=== PATIENT | male | born 1935 | race Caucasian/White ===

== ENCOUNTER 2017-08-17 23:32 | Emergency (ER) | payer MEDICARE ==
[~2017-08-17] VITALS: Ht 167.6 cm; Wt 73.0 kg
[2017-08-17 23:35] VITALS: BP 137/93; PULSE 89; RESP 16; TEMP 97.8; O2SAT 99
[2017-08-17] MEDS ORDERED: ASPI-516 CHEW (23:56)
[2017-08-18 00:05] VITALS: BP_SYST 127; BP_SYST 133; BP_SYST 145; BP_DIAS 68; BP_DIAS 71; RESP 13; RESP 18; RESP 19; RESP 20; O2SAT 99
--- NOTE | 2017-08-18 00:09 | PD ---
HPI Chief Complaint: GI Complaint Time Seen by Provider: 00:01 Travel History International Travel<30 days: No Contact w/Intl Traveler<30days: No Traveled to known affect area: No History of Present Illness HPI This is an 81-year-old male with no past medical history, presents today with complaints of watery stools times a few hours. Patient states over the last few hours, he's been drinking water from a water bottle and reports that he goes right out his bottom. He states that as soon as he drinks a bottle water he then has a bowel movement of water. He denies any fevers, chills. He denies any ill contacts. He states it only started a few hours ago. There is no reported nausea or vomiting. There is no reported blood in his stool. The patient also reports that during this episodes of watery stools, he got dizzy and nearly passed out. He is not dizzy now. He has no other complaints time my examination. PFSH Past Medical History Cerebrovascular Accident: Yes (TIA) Medical other: Yes (LOW BLOOD SUGAR) Ulcer: Yes Past Surgical History Abdominal Surgery: Yes (MESH, HERNIA REPAIR ) Social History Alcohol Use: No Tobacco Use: No Substance Use: No Allergies-Medications (Allergen,Severity, Reaction): Coded Allergies: No Known Allergies (Verified Allergy, Mild, 08/17/17) Reported Meds & Prescriptions Reported Meds & Active Scripts Active Lomotil (Diphenoxylate-Atropine) 2.5-0.025 Mg Tab 1 Tab PO Q6H PRN Reported Aspirin 81 Mg Chew 81 Mg CHEW DAILY Review of Systems Except as stated in HPI: all other systems reviewed are Neg General / Constitutional: No: Fever, Chills HENT: No: Headaches, Lightheadedness, Neck Pain Cardiovascular: No: Chest Pain or Discomfort, Palpitations Respiratory: No: Cough, Shortness of Breath Gastrointestinal: Positive: Diarrhea (watery stool times several episodes), No : Nausea, Vomiting Genitourinary: No: Frequency, Dysuria Musculoskeletal: No: Weakness, Pain Neurologic: Positive: Syncope (near syncopal earlier, none now), No: Weakness, Dizziness, Headache Physical Exam Narrative GENERAL: Well-developed well-nourished male in no acute respiratory distress SKIN: Focused skin assessment warm/dry. HEAD: Atraumatic. Normocephalic. EYES: Pupils equal and round. No scleral icterus. No injection or drainage. ENT: No nasal bleeding or discharge. Mucous membranes pink and moist. NECK: Trachea midline. Supple. CARDIOVASCULAR: Regular rate and rhythm. No murmur appreciated. RESPIRATORY: No accessory muscle use. Clear to auscultation. Breath sounds equal bilaterally. GASTROINTESTINAL: Abdomen soft, non-tender, nondistended. Hepatic and splenic margins not palpable. MUSCULOSKELETAL: No obvious deformities. No clubbing. No cyanosis. No edema. NEUROLOGICAL: Awake and alert. No obvious cranial nerve deficits. Motor grossly within normal limits. Normal speech. PSYCHIATRIC: Appropriate mood and affect; insight and judgment normal. Data Data Last Documented VS Vital Signs Date Time Temp Pulse Resp B/P (MAP) Pulse Ox O2 Delivery O2 Flow Rate FiO2 08/18/17 00:05 19 99 Room Air 08/18/17 00:05 89 97 113 08/17/17 23:35 97.8 Orders Orders Complete Blood Count With Diff (08/18/17 00:01) Comprehensive Metabolic Panel (08/18/17 00:01) Iv Access Insert/Monitor (08/18/17 00:01) Ecg Monitoring (08/18/17 00:01) Oximetry (08/18/17 00:01) Orthostatic Vital Signs (08/18/17 00:01) Sodium Chlor 0.9% 1000 Ml Inj (Ns 1000 M (08/18/17 00:15) Enteric Path (Stool) (08/18/17 00:56) C Diff Toxin Pcr (08/18/17 00:56) Sodium Chlor 0.9% 1000 Ml Inj (Ns 1000 M (08/18/17 01:00) Diphenoxylate/Atropine Tab (Lomotil Tab) (08/18/17 02:15) Diphenoxylate/Atropine Tab (Lomotil Tab) (08/18/17 02:15) Labs Laboratory Tests Test 08/17/17 23:50 08/18/17 01:00 White Blood Count 12.9 TH/MM3 Red Blood Count 4.91 MIL/MM3 Hemoglobin 16.1 GM/DL Hematocrit 46.6 % Mean Corpuscular Volume 95.0 FL Mean Corpuscular Hemoglobin 32.8 PG Mean Corpuscular Hemoglobin Concent 34.5 % Red Cell Distribution Width 13.2 % Platelet Count 265 TH/MM3 Mean Platelet Volume 8.7 FL Neutrophils (%) (Auto) 78.5 % Lymphocytes (%) (Auto) 12.2 % Monocytes (%) (Auto) 5.5 % Eosinophils (%) (Auto) 3.2 % Basophils (%) (Auto) 0.6 % Neutrophils # (Auto) 10.1 TH/MM3 Lymphocytes # (Auto) 1.6 TH/MM3 Monocytes # (Auto) 0.7 TH/MM3 Eosinophils # (Auto) 0.4 TH/MM3 Basophils # (Auto) 0.1 TH/MM3 CBC Comment DIFF FINAL Differential Comment Blood Urea Nitrogen 20 MG/DL Creatinine 1.37 MG/DL Random Glucose 139 MG/DL Total Protein 8.4 GM/DL Albumin 4.4 GM/DL Calcium Level 9.4 MG/DL Alkaline Phosphatase 119 U/L Aspartate Amino Transf (AST/SGOT) 23 U/L Alanine Aminotransferase (ALT/SGPT) 24 U/L Total Bilirubin 0.8 MG/DL Sodium Level 134 MEQ/L Potassium Level 3.9 MEQ/L Chloride Level 104 MEQ/L Carbon Dioxide Level 24.7 MEQ/L Anion Gap 5 MEQ/L Estimat Glomerular Filtration Rate 50 ML/MIN Stool C. difficile Toxin (PCR) NEGATIVE Stl C. difficile Toxin Epiderm 027 PRESUMPTIVE NEGATIVE MDM Medical Decision Making Medical Screen Exam Complete: Yes Emergency Medical Condition: Yes Differential Diagnosis Infectious diarrhea versus fluid overload versus dehydration versus metabolic derangement Narrative Course 81-year-old male presents with complaints of watery stools starting last night. Patient reports that when he drinks water, it goes right in his stool. He had an episode where he nearly passed out. The patient's BUN and creatinine are elevated at 20 over 1.37. He's been given 2 L of IV fluid. He is asymptomatic at this time. I discussed the case with his primary care doctor, Dr. Elias arias, who reports that he does have some baseline renal sufficiency. He was comfortable with us sending him home and treating his diarrhea now that we know that is not C. difficile. It is not C. difficile and he'll be given a prescription for Lomotil. He's been given his first tablet here before discharge. He'll follow up with Dr. arias and told to call today for an appointment. Diagnosis Primary Impression: Diarrhea Additional Impressions: Near syncope Prerenal azotemia Additional Instructions: Treat plenty of fluids. Brat (bananas, applesauce, rice, toast.) diet times 24- [address] arias today for an appointment. Return if feeling worse. Med/Other Pt SpecificInfo: Prescription(s) given Scripts Diphenoxylate-Atropine (Lomotil) 2.5-0.025 Mg Tab 1 TAB PO Q6H Y for DIARRHEA, #10 TAB 0 Refills Prov: Gerard Ross MD 08/18/17 Disposition: 01 DISCHARGE HOME Condition: Stable Gerard Ross MD Aug 18, 2017 00:09
[2017-08-18] MEDS ORDERED: SODIUM CHLOR 0.9% 1000 ML INJ 1,000 ML IV ONE ×2 (00:15→01:00)
[2017-08-18 00:22] LABS: AUTOMATED NEUTROPHIL # 10.1 TH/MM3 (1.8-7.7); BASOPHIL # 0.1 TH/MM3 (0-0.2); BASOPHIL % 0.6 % (0.0-2.0); EOSINOPHIL # 0.4 TH/MM3 (0-0.4); EOSINOPHIL % 3.2 % (0.0-4.0); HEMATOCRIT 46.6 % (39.0-51.0); HEMOGLOBIN 16.1 GM/DL (13.0-17.0); LYMPH % 12.2 % (9.0-44.0); LYMPHOCYTE # 1.6 TH/MM3 (1.0-4.8); MEAN CORPUSCULAR HEMOGLOBIN 32.8 PG (27.0-34.0); MEAN CORPUSCULAR HGB CONC 34.5 % (32.0-36.0); MEAN PLATELET VOLUME 8.7 FL (7.0-11.0); MONO % 5.5 % (0.0-8.0); MONOCYTE # 0.7 TH/MM3 (0-0.9); NEUT % 78.5 % (16.0-70.0); PLATELET COUNT 265 TH/MM3 (150-450); RED BLOOD COUNT 4.91 MIL/MM3 (4.50-5.90); RED CELL DISTRIBUTION WIDTH 13.2 % (11.6-17.2); WHITE BLOOD COUNT 12.9 TH/MM3 (4.0-11.0)
[2017-08-18 00:41] LABS: ALKALINE PHOSPHATASE 119 U/L (45-117); TOTAL BILIRUBIN ADULT 0.8 MG/DL (0.2-1.0); TOTAL PROTEIN 8.4 GM/DL (6.4-8.2)
[2017-08-18 00:47] LABS: ALBUMIN 4.4 GM/DL (3.4-5.0); ALT (GPT) 24 U/L (12-78); AST (GOT) 23 U/L (15-37); BICARBONATE 24.7 MEQ/L (21.0-32.0); BLOOD UREA NITROGEN 20 MG/DL (7-18); CALCIUM 9.4 MG/DL (8.5-10.1); CHLORIDE 104 MEQ/L (98-107); CREATININE 1.37 MG/DL (0.60-1.30); GLOMERULAR FILTRATION RATE 50 ML/MIN (>89); GLUCOSE,RANDOM 139 MG/DL (74-106); SODIUM (NA) 134 MEQ/L (136-145)
[2017-08-18] MEDS ORDERED: LOMO2.5T PO (02:09)
[2017-08-18] MEDS ORDERED: DIPHENOXYLATE/ATROPINE 2.5 MG/0.025 MG TAB PO SCH ×2 (02:15)
--- NOTE | 2017-08-18 08:54 | EKG ---
Date Performed: 08/17/2017 Time Performed: 23:49:16 PTAGE: 81 years EKG: ATRIAL FIBRILLATION INCOMPLETE RIGHT BUNDLE BRANCH BLOCK ABNORMAL RHYTHM ECG Compared to pr ior electrocardiogram, atrial fibrillation has replaced Sinus bradycardia . DOCTOR: Jose G Sadler Interpretating Date/Time 08/18/2017 08:53:23
== END 2017-08-18 02:39 | disposition home or self-care (01) ==
LOC: NEPC 23:32
DX: R19.7 Diarrhea, unspecified (principal); R55 Syncope and collapse; R79.89 Other specified abnormal findings of blood chemistry
CPT/HCPCS: 80053; 85025; 87493; 87506; 93005; 99285; J7030